=== PATIENT | female | born 1980 | race Two or more races ===

== ENCOUNTER 2017-04-13 20:13 | Emergency (ER) | payer MEDICAID ==
[~2017-04-13] VITALS: Ht 154.9 cm; Wt 97.7 kg
[~2017-04-13 20:13] MED LIST: DOCU-131 PO; FERR325T18 PO; LABE100T3 PO; OXYC-302 PO
[2017-04-13] MEDS ORDERED: HYDROcodone/APAP 5/325 TABLET ONE (21:24)
[2017-04-13] MEDS ORDERED: HYDROcodone/APAP 5/325 TABLET PO ONE (21:30)
[2017-04-13 21:47] VITALS: BP 130/95
== END 2017-04-13 21:49 | disposition home or self-care (01) ==
LOC: ED 21:17
DX: L03.115 Cellulitis of right lower limb (principal); J45.909 Unspecified asthma, uncomplicated
CPT/HCPCS: 99283

== ENCOUNTER 2017-11-05 00:50 | Emergency (ER) | payer MEDICAID ==
[~2017-11-05] VITALS: Ht 154.9 cm; Wt 97.2 kg
[~2017-11-05 00:50] MED LIST changes: -LABE100T3 PO; +LABE100T6 PO
[2017-11-05 00:53] VITALS: BP 135/86
[2017-11-05] MEDS ORDERED: ALBUTEROL SULFATE 2.5MG/0.5ML ONE (01:15)
[2017-11-05] MEDS ORDERED: ALBUTEROL SULFATE 2.5 MG/3 ML NPPB ONE (01:30)
== END 2017-11-05 02:27 | disposition home or self-care (01) ==
LOC: ED 02:00
DX: J45.31 Mild persistent asthma with (acute) exacerbation (principal); H92.03 Otalgia, bilateral; Z88.6 Allergy status to analgesic agent
CPT/HCPCS: 71045; 94640; 99283; J7512; J7613